=== PATIENT | male | born 1975 | race Hispanic/Latino ===

== ENCOUNTER 2016-10-08 14:59 | Emergency (ER) | payer OTHER ==
[2016-10-08] MEDS ORDERED: ATIVAN IV ONE (16:11)
[2016-10-08] MEDS ORDERED: GEODON IM ONE (16:11)
[2016-10-08 16:17] LABS: Hematocrit 41.9 % (35.5-45.6); Hemoglobin 13.8 gm/dl (11.8-15.2); Mean Corpuscular HGB Conc 33 % (32-34); Mean Corpuscular Hemoglobin 31 pg (28-32); Mean Corpuscular Volume 94 fl (84-94); Platelet Count 350 K/mm3 (140-440); Red Blood Count 4.47 M/mm3 (3.65-5.03); Red Cell Distribution Width 13.3 % (13.2-15.2); White Blood Count 14.9 K/mm3 (4.5-11.0)
[2016-10-08 16:36] LABS: Alanine Aminotransferase 56 units/L (7-56); Albumin 4.3 g/dL (3.9-5); Albumin/Globulin Ratio 1.6 %; Alkaline Phosphatase 71 units/L (35-129); Anion Gap 23 mmol/L; BUN/Creatinine Ratio 21.11; Blood Urea Nitrogen 19 mg/dL (9-20); Calcium 9.8 mg/dL (8.4-10.2); Carbon Dioxide 23 mmol/L (22-30); Chloride 97.7 mmol/L (98-107); Glucose 70 mg/dL (75-100); Potassium 3.8 mmol/L (3.6-5.0); Sodium 140 mmol/L (137-145)
[2016-10-08 16:38] LABS: Urine Drugs of Abuse Note Disclamer
[2016-10-08] MEDS ORDERED: WATER FOR INJ (PF) 10 ML ONE (16:54)
[2016-10-08 17:02] LABS: Bacteria,Urine 1+ /HPF (Negative); Bilirubin,Urine NEG (Negative); Blood,Urine NEG (Negative); Granular Casts,Urine 2 /LPF; Ketones,Urine 20 mg/dL (Negative); Leukocyte Esterase,Urine NEG (Negative); Mucus,Urine 3+ /HPF; Nitrite,Urine NEG (Negative)
[2016-10-08] MEDS ORDERED: NACL 0.9% 1000 ML 1,000 ML ONE (17:11)
[2016-10-08] MEDS ORDERED: NACL 0.9% 1000 ML 1,000 ML IV ONE (17:52)
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
[2016-10-08 19:52] VITALS: BP 111/69
== END 2016-10-08 20:15 | disposition home or self-care (01) ==
LOC: ED 14:59
DX: F29 Unspecified psychosis not due to a substance or known physiological condition (principal); F15.10 Other stimulant abuse, uncomplicated; F12.10 Cannabis abuse, uncomplicated; F20.9 Schizophrenia, unspecified; I10 Essential (primary) hypertension; R56.9 Unspecified convulsions; J45.909 Unspecified asthma, uncomplicated; Z72.0 Tobacco use; Z98.890 Other specified postprocedural states
CPT/HCPCS: 36415; 80053; 80178; 80307; 81001; 82550; 82962; 85027; 96361; 96372; 96374; 99284; G0480; J2060; J3486; J7030; 80320